=== PATIENT | female | born 1980 | race Caucasian/White ===

== ENCOUNTER 2021-01-31 20:01 | Emergency (ER) | payer OTHER ==
[2021-01-31] MEDS ORDERED: methylPREDNISolone Sod Succ/PF 125 MG/2 ML VIAL ONE (20:11)
[2021-01-31] MEDS ORDERED: Ondansetron PF 4 MG/2 ML Vial ONE (20:13)
[2021-01-31] MEDS ORDERED: Racepinephrine 2.25% 0.5 ML NEB ONE (20:31)
[2021-01-31] MEDS ORDERED: Fentanyl 100 MCG/2 ML VIAL ONE (21:26)
[2021-01-31] MEDS ORDERED: Midazolam HCl 2 mg/2 ml Vial ONE ×2 (21:26→21:41)
[2021-01-31] MEDS ORDERED: Sodium Chloride 0.9% 1,000 ML ONE (21:45)
== END 2021-01-31 22:00 | disposition short-term general hospital (02) ==
LOC: NAV ERS 20:01
DX: T78.2XXA Anaphylactic shock, unspecified, initial encounter (principal); R06.2 Wheezing; R00.0 Tachycardia, unspecified; R06.02 Shortness of breath; R11.0 Nausea; Z79.899 Other long term (current) drug therapy
CPT/HCPCS: 31500; 71045; 96374; 96375; J2250; J2405; J2930; J3010; J7050